=== PATIENT | male | born 1965 | race Caucasian/White ===

== ENCOUNTER 2018-12-02 01:40 | Emergency (ER) | payer BC ==
--- OUTSIDE RECORDS SUMMARY | 2018-12-02 01:43 | XMS REPORT | Clinical Summary ---
:1965 Author Organization [facility] Address [address] [place] [address] Care Team Providers Name Role Phone Dianne Menchaca MD Primary Care Provider Allergies No Known Allergies Medications Medication Sig Dispensed Refills Start Date End Date Status cyanocobalamin 1,000 Inject 1 mL into 0 08/30/2017 Active mcg/mL injection the shoulder, thigh, or buttocks every 30 (thirty) days. gabapentin (NEURONTIN) Take 600 mg by 0 Active 600 mg tablet mouth daily. Active Problems Not on file Encounters Date Type Specialty Care Team Description 12/09/2017 Telephone Family Medicine Dianne Menchaca MD 12/01/2017 Lab Lab Dianne Menchaca Vitamin B12 deficiency; MD Gina Peripheral polyneuropathy; Impaired fasting glucose 12/01/2017 Office Visit Family Dianne Dickson Peripheral polyneuropathy (Primary Dx); MD Gina Vitamin B12 deficiency; Impaired fasting glucose after 12/01/2017 Family History Medical History Relation Name Comments Hypertension Father Liver disease Father Diabetes Maternal Grandfather Hypertension Maternal Grandfather Lung cancer Maternal Grandmother Hypertension Mother Skin cancer Mother Relation Name Status Comments Father Maternal Grandfather Maternal Grandmother Mother Social History Tobacco Use Types Packs/Day Years Used Date Former Smoker Quit: 2001 Smokeless Tobacco: Never Used Sex Assigned at Date Recorded Not on file Job Start Date Occupation Industry Not on file Not on file Not on file Travel History Travel Start Travel End No recent travel history available. Last Filed Vital Signs Vital Sign Reading Time Taken Blood Pressure 138/77 12/01/2017 1:40 PM CDT Pulse 64 12/01/2017 1:40 PM CDT Temperature 37.1 C (98.8 F) 12/01/2017 1:40 PM CDT Respiratory Rate - - Oxygen Saturation 98% 12/01/2017 1:40 PM CDT Inhaled Oxygen Concentration - - Weight 92.5 kg (204 lb) 12/01/2017 1:40 PM CDT Height 189.2 cm (6' 2.5") 12/01/2017 1:40 PM CDT Body Mass Index 25.84 12/01/2017 1:40 PM CDT Plan of Treatment Date Type Specialty Care Team Description 12/14/2018 Office Visit Family Medicine Dianne Menchaca MD [address] [facility] [address] [place] [address] Health Maintenance Due Date Last Done Comments COLON CANCER SCREENING 2015 SHINGLES VACCINES (#1) 2015 INFLUENZA VACCINE 03/04/2019 05/27/2018 Procedures Procedure Name Priority Date/Time Associated Diagnosis Comments SEDIMENTATION RATE Routine 12/01/2017 2:48 Peripheral Results for this PM CDT polyneuropathy procedure are in the results section. HEMOGLOBIN A1C Routine 12/01/2017 2:48 Impaired fasting Results for this PM CDT glucose procedure are in the results section. COMPREHENSIVE Routine 12/01/2017 2:48 Peripheral Results for this METABOLIC PANEL PM CDT polyneuropathy procedure are in Impaired fasting the results glucose section. CBC WITH PLATELET AND Routine 12/01/2017 2:48 Peripheral Results for this DIFFERENTIAL PM CDT polyneuropathy procedure are in Vitamin B12 deficiency the results section. METHYLMALONIC ACID, Routine 12/01/2017 2:48 Vitamin B12 deficiency Results for this SERUM PM CDT procedure are in the results section. VITAMIN B12 LEVEL Routine 12/01/2017 2:48 Vitamin B12 deficiency Results for this PM CDT procedure are in the results section. after 12/01/2017 Results Methylmalonic acid, serum (12/01/2017 2:48 PM CDT) Methylmalonic acid 122 0 - 378 nmol/L [facility] Comment: This test was developed and its performance characteristics determined by [facility]. It has not been cleared or approved by the Food and Drug Administration. Specimen Blood Narrative Performed At Performed at:01 - [facility] [address] [place], [id number] Management Architect: Demetrius eVga MD, Phone:[phone] Performing Organization Address City/[facility] Phone Number [facility] Sedimentation rate (12/01/2017 2:48 PM CDT) Sedimentation rate 2 0 - 30 mm/hr [facility] Specimen Blood Narrative Performed At Performed at:01 - [facility] [place] [facility] [address] [place], [id number] Management Architect: Zackery Laurent MD, Phone:[phone] Performing Organization Address City/[facility] Phone Number [facility] CBC with platelet and differential (12/01/2017 2:48 PM CDT) WBC 5.1 3.4 - 10.8 x10E3/uL [facility] RBC 4.46 4.14 - 5.80 x10E6/uL [facility] HGB 14.5 13.0 - 17.7 g/dL [facility] HCT 41.9 37.5 - 51.0 % [facility] MCV 94 79 - 97 fL [facility] MCH 32.5 26.6 - 33.0 pg [facility] MCHC 34.6 31.5 - 35.7 g/dL [facility] RDW 12.8 12.3 - 15.4 % [facility] Platelet count 192 150 - 379 x10E3/uL [facility] Neutrophils 72 Not Estab. % [facility] Lymphocytes 20 Not Estab. % [facility] Monocytes 7 Not Estab. % [facility] Eosinophils 1 Not Estab. % [facility] Basophils 0 Not Estab. % [facility] Neutrophils, absolute 3.7 1.4 - 7.0 x10E3/uL [facility] Lymphocytes, absolute 1.1 0.7 - 3.1 x10E3/uL [facility] Monocytes, absolute 0.3 0.1 - 0.9 x10E3/uL [facility] Eosinophils, absolute 0.1 0.0 - 0.4 x10E3/uL [facility] Basophils, absolute 0.0 0.0 - 0.2 x10E3/uL [facility] Immature granulocytes 0 Not Estab. % [facility] Immature grans (abs) 0.0 0.0 - 0.1 x10E3/uL [facility] Specimen Blood Narrative Performed At [facility]formed [facility]: [facility] [address] [place], [id number] Management Architect: Zackery Laurent MD, Phone:[phone] Performing Organization Address [facility] Phone Number [facility] Hemoglobin A1c (12/01/2017 2:48 PM CDT) Hemoglobin A1C 5.0 4.8 - 5.6 % [facility] Comment: Pre-diabetes: 5.7 - 6.4 Diabetes: >6.4 Glycemic control for adults with diabetes: <7.0 Specimen Blood Narrative Performed At Performed at: [facility] [address] [place], [place] [id number] Management Architect: Zackery Laurent MD, Phone:[phone] Performing Organization Address [facility] Phone Number [facility] Vitamin B12 level (12/01/2017 2:48 PM CDT) Vitamin B12 741 232 - 1,245 pg/mL [facility] Specimen Blood Narrative Performed At Performed at: [facility] [place], [id number] Management Architect: Zackery Laurent MD, Phone:[phone] Performing Organization Address [facility] Phone Number [facility] Comprehensive metabolic panel (12/01/2017 2:48 PM CDT) Glucose 99 65 - 99 mg/dL [facility] BUN, whole blood 11 6 - 24 mg/dL [facility] Creatinine 0.75 (L) 0.76 - 1.27 mg/dL [facility] EGFR Non-Afr. Zambian 105 >59 mL/min/1.73 [facility] EGFR 122 >59 mL/min/1.73 [facility] BUN/creatinine ratio 15 9 - 20 [facility] Sodium 145 (H) 134 - 144 mmol/L [facility] Potassium 4.4 3.5 - 5.2 mmol/L [facility] Chloride 105 96 - 106 mmol/L [facility] CO2 24 18 - 29 mmol/L [facility] Calcium 9.3 8.7 - 10.2 mg/dL [facility] Protein 6.8 6.0 - 8.5 g/dL [facility] Albumin, S 4.8 3.5 - 5.5 g/dL [facility] Globulin, total 2.0 1.5 - 4.5 g/dL [facility] Albumin/globulin ratio 2.4 (H) 1.2 - 2.2 [facility] Total bilirubin 0.4 0.0 - 1.2 mg/dL [facility] Alkaline phosphatase 71 39 - 117 IU/L [facility] AST 20 0 - 40 IU/L [facility] ALT 21 0 - 44 IU/L [facility] Specimen Blood Narrative Performed At Performed at:01 - [facility] [place] [facility] [address] [place], [id number] Management Architect: Zackery Laurent MD, Phone:[phone] Performing Organization Address City/State/Zipcode Phone Number [facility] after 12/01/2017 Insurance Payer Benefit Plan / Group Subscriber ID Type Phone Address [facility] xxxxxxxxxxxx PPO Advance Directives Patient has advance care planning documents on file. For more information, please contact:Vance Martinez[address] [place] [address]
[2018-12-02 02:30] LABS: Absolute Lymphocytes (CBC) 1.2 K/uL (0.7-4.9); Absolute Monocytes 0.4 K/uL (0.1-1.3); Absolute Neutrophil 2.3 K/uL (1.8-8.0); Basophils % 0.9 % (0-1.3); Eosinophils % 8.4 % (0-4.4); Hematocrit 38.9 % (39.6-49.0); Lymphocytes % 28.1 % (15.3-44.8); MPV 8.8 fL (7.6-11.3); Monocytes % 9.6 % (3.3-12.3); RBC Red Blood Cell Count 4.06 M/uL (4.33-5.43)
[2018-12-02 02:55] LABS: ALT/SGPT 34 U/L (12-78); AST/SGOT 19 U/L (15-37); Alkaline Phosphatase 69 U/L (45-117); BUN Blood Urea Nitrogen 17 mg/dL (7-18); Bicarbonate 28 mmol/L (21-32); Bilirubin Direct < 0.1 mg/dL (0-0.2); Bilirubin Total 0.4 mg/dL (0.2-1.0); Glucose Level 109 mg/dL (74-106); Lipase 126 U/L (73-393); Potassium 3.9 mmol/L (3.5-5.1); Protein, Total 6.9 g/dL (6.4-8.2); Sodium Level 139 mmol/L (136-145)
--- NOTE | 2018-12-02 04:01 | ER ---
Nurse's Notes [facility] Name: Felix Roberson Age: 53 yrs Sex: Male : 1965 Arrival Date: 12/02/2018 Time: 01:42 Bed 7 Private MD: Diagnosis: Strain of adductor muscle, fascia and tendon of right thigh Presentation: 12/02 02:00 Presenting complaint: Patient states: he has had int R groin pain x 5 days. Denies aa1 blood in urine or dysuria. Denies N/V or fever. Reports minor discomfort with BM. Transition of care: patient was not received from another setting of care. Onset of symptoms was November 28, 2018. Risk Assessment: Do you want to hurt yourself or someone else? Patient reports no desire to harm self or others. Initial Sepsis Screen: Does the patient meet any 2 criteria? No. Patient's initial sepsis screen is negative. Does the patient have a suspected source of infection? No. Patient's initial sepsis screen is negative. Care prior to arrival: None. 02:00 Method Of Arrival: Ambulatory aa1 02:00 Acuity: DONG 3 aa1 Historical: - Allergies: 02:09 No Known Allergies; aa1 - Home Meds: 02:09 gabapentin oral oral [Active]; aa1 - PMHx: 02:09 neuropathy; Kidney stones; aa1 - PSHx: 02:09 Vasectomy; aa1 - Immunization history:: Flu vaccine is up to date. - Social history:: Smoking status: Patient/guardian denies using tobacco, but has a distant history of tobacco abuse. - Ebola Screening: : No symptoms or risks identified at this time. Screenin:00 Abuse screen: Denies threats or abuse. Denies injuries from another. Nutritional aa1 screening: No deficits noted. Tuberculosis screening: No symptoms or risk factors identified. Fall Risk None identified. Assessment: 02:00 General: Appears in no apparent distress. comfortable, slender, well groomed, Behavior aa1 is calm, cooperative, appropriate for age. Pain: Complains of pain in right femoral area and right inguinal area Pain currently is 3 out of 10 on a pain scale. Pain began 5 days ago Is intermittent. Neuro: Level of Consciousness is awake, alert, obeys commands, Oriented to person, place, time, situation, Moves all extremities. Gait is steady. Respiratory: Airway is patent Respiratory effort is even, unlabored, Respiratory pattern is regular, symmetrical. GI: Patient currently denies abdominal pain, constipation, cramping, diarrhea, nausea, vomiting. : Reports pain in right groin Denies burning with urination, inability to void, pain with urination urinary frequency, urgency. EENT: No signs and/or symptoms were reported regarding the EENT system. Derm: Skin is intact, is healthy with good turgor, Skin is pink, warm \T\ dry. Musculoskeletal: Circulation, motion, and sensation intact. Capillary refill < 3 seconds. 02:47 Reassessment: Patient appears in no apparent distress at this time. Patient and/or aa1 family updated on plan of care and expected duration. Pain level reassessed. Patient is alert, oriented x 3, equal unlabored respirations, skin warm/dry/pink. Awaiting CT results. 04:24 Reassessment: Patient appears in no apparent distress at this time. Patient is alert, aa1 oriented x 3, equal unlabored respirations, skin warm/dry/pink. Discussed d/c \T\ f/u instructions with pt; denies questions or concerns at this time. Ambulates to lobby with steady gait. Vital Signs: 02:09 BP 153 / 92; Pulse 61; Resp 16; Temp 98.4; Pulse Ox 98% on R/A; Weight 83.91 kg; Height aa1 6 ft. 2 in. (187.96 cm); Pain 3/10; 02:47 BP 141 / 95; Pulse 54; Resp 16; Pulse Ox 95% on R/A; aa1 03:30 BP 116 / 88; Pulse 51; Resp 16; Pulse Ox 97% on R/A; Pain 4/10; aa1 04:24 BP 120 / 83; Pulse 51; Resp 16; Temp 98.2; Pulse Ox 97% on R/A; Pain 2/10; aa1 02:09 Body Mass Index 23.75 (83.91 kg, 187.96 cm) aa1 ED Course: 01:42 Patient arrived in ED. ds1 01:51 Luis A Alfaro PA is PHCP. [facility] 01:51 Jose Hardy MD is Attending Physician. [facility] 01:58 Autenrieth, Mohini, RN is Primary Nurse. aa1 02:00 Patient has correct armband on for positive identification. Bed in low position. Call aa1 light in reach. Pulse ox on. NIBP on. 02:06 Triage completed. aa1 02:09 Arm band placed on right wrist. aa1 02:20 Initial lab(s) drawn, by me, sent to lab. Inserted saline lock: 20 gauge in right ak1 antecubital area, using aseptic technique. Blood collected. 03:35 CT Abd/Pelvis - W/Contrast In Process Unspecified. EDMS 04:24 No provider procedures requiring assistance completed. IV discontinued, intact, aa1 bleeding controlled, No redness/swelling at site. Pressure dressing applied. Administered Medications: 04:10 Drug: TORadol 30 mg Route: IVP; Site: right antecubital; aa1 04:24 Follow up: Response: No adverse reaction; Medication administered at discharge. aa1 Outcome: 04:00 Discharge ordered by . tw4 04:24 Discharged to home ambulatory. aa1 04:24 Condition: good 04:24 Discharge instructions given to patient, Instructed on discharge instructions, follow up and referral plans. medication usage, Demonstrated understanding of instructions, follow-up care, medications, Prescriptions given X 1. 04:26 Patient left the ED. aa1 Signatures: Dispatcher [employer] EDOK Mohini Mcmullen, KRISTEN RN aa1 Luis A Alfaro PA PA jmm Sanford, Demi ds1 Constance Martinez RN RN ak1 Jose Hardy MD MD tw4 Corrections: (The following items were deleted from the chart) 04:28 03:30 No provider procedures requiring assistance completed. aa1 aa1 04:28 03:30 IV discontinued, intact, bleeding controlled, No redness/swelling at site. aa1 Pressure dressing applied, aa1
--- NOTE | 2018-12-02 04:01 | EDPHYS ---
Physician Documentation [facility] Name: Felix Roberson Age: 53 yrs Sex: Male : 1965 Arrival Date: 12/02/2018 Time: 01:42 Bed 7 Private MD: ED Physician Jose Hardy HPI: 12/02 01:56 This 53 yrs old Male presents to ER via Ambulatory with complaints of Groin jmm Pain. 01:56 The patient presents with swelling. Onset: The symptoms/episode began/occurred jmm gradually, 4 day(s) ago. Associated signs and symptoms: Pertinent negatives: fever. This is a 53 year old male with no chronic medical conditions that presents to the ED with complaints of right groin pain worsening after biking 150 miles this weekend. Patient states pain was worsened while bending at work today. Denies scrotal pain. Denies vomiting, denies fever. . Historical: - Allergies: 02:09 No Known Allergies; aa1 - Home Meds: 02:09 gabapentin oral oral [Active]; aa1 - PMHx: 02:09 neuropathy; Kidney stones; aa1 - PSHx: 02:09 Vasectomy; aa1 - Immunization history:: Flu vaccine is up to date. - Social history:: Smoking status: Patient/guardian denies using tobacco, but has a distant history of tobacco abuse. - Ebola Screening: : No symptoms or risks identified at this time. ROS: 01:56 Constitutional: Negative for fever, chills, and weight loss, Cardiovascular: Negative jmm for chest pain, palpitations, and edema, Respiratory: Negative for shortness of breath, cough, wheezing, and pleuritic chest pain. 01:56 Back: Negative for injury and pain, Skin: Negative for injury, rash, and discoloration, Neuro: Negative for headache, weakness, numbness, tingling, and seizure. 01:56 Abdomen/GI: Positive for abdominal pain. 01:56 All other systems are negative. Exam: 01:56 Constitutional: This is a well developed, well nourished patient who is awake, alert, jmm and in no acute distress. Head/Face: atraumatic. Eyes: EOMI, no conjunctival erythema appreciated ENT: Moist Mucus Membranes Neck: Trachea midline, Supple Chest/axilla: Normal chest wall appearance and motion. Cardiovascular: Regular rate and rhythm. No edema appreciated Respiratory: Normal respirations, no respiratory distress appreciated Abdomen/GI: Non distended, soft 01:56 : swelling noted to the right groin, no scrotal mass appreciated on examination of the right inguinal canal. 01:56 Musculoskeletal/extremity: ROM: intact in all extremities. 01:56 Skin: Appearance: Color: normal in color. 01:56 Neuro: Orientation: is normal, Mentation: is normal, Memory: is normal. 01:56 Psych: Behavior/mood is pleasant, cooperative. Vital Signs: 02:09 BP 153 / 92; Pulse 61; Resp 16; Temp 98.4; Pulse Ox 98% on R/A; Weight 83.91 kg; Height aa1 6 ft. 2 in. (187.96 cm); Pain 3/10; 02:47 BP 141 / 95; Pulse 54; Resp 16; Pulse Ox 95% on R/A; aa1 03:30 BP 116 / 88; Pulse 51; Resp 16; Pulse Ox 97% on R/A; Pain 4/10; aa1 04:24 BP 120 / 83; Pulse 51; Resp 16; Temp 98.2; Pulse Ox 97% on R/A; Pain 2/10; aa1 02:09 Body Mass Index 23.75 (83.91 kg, 187.96 cm) aa1 MDM: 01:56 Patient medically screened. [facility] 02:46 Data reviewed: vital signs, nurses notes. Transition of care: After a detail discussion [facility] of the patient's case, care is transferred to Jose Hardy MD. 12/02 02:06 Order name: Basic Metabolic Panel; Complete Time: 03:58 [facility] 12/02 03:59 Interpretation: Normal except: GLUC 109. 12/02 02:06 Order name: CBC with Diff; Complete Time: 03:59 [facility] 12/02 03:59 Interpretation: Normal except: HCT 38.9; RBC 4.06. 12/02 02:06 Order name: Creatinine for Radiology; Complete Time: 03:59 [facility] 12/02 03:59 Interpretation: Within normal limits. [facility] 12/02 02:06 Order name: Hepatic Function; Complete Time: 03:59 [facility] 12/02 03:59 Interpretation: Within normal limits. 12/02 02:06 Order name: Lipase [facility] 12/02 02:06 Order name: CT Abd/Pelvis - W/Contrast [facility] 12/02 02:06 Order name: IV Saline Lock; Complete Time: 02:20 [facility] 12/02 02:06 Order name: Labs collected and sent; Complete Time: 02:20 [facility] Administered Medications: 04:10 Drug: TORadol 30 mg Route: IVP; Site: right antecubital; aa1 04:24 Follow up: Response: No adverse reaction; Medication administered at discharge. aa1 Disposition: 12/02/18 04:00 Discharged to Home. Impression: Strain of adductor muscle, fascia and tendon of right thigh. - Condition is Stable. - Discharge Instructions: Adductor Muscle Strain, Muscle Strain. - Prescriptions for Ibuprofen 800 mg Oral Tablet - take 1 tablet by ORAL route every 8 hours As needed take with food; 30 tablet. - Medication Reconciliation Form, Thank You Letter, Antibiotic Education, Prescription Opioid Use form. - Follow up: Private Physician; When: Upon discharge from the Emergency Department; Reason: If symptoms return, Recheck today's complaints, Continuance of care. - Problem is new. - Symptoms have improved. Signatures: Dispatcher [employer] EDMohini Hammond RN RN aa1 Luis A Alfaro PA PA [facility] Jose Hardy MD MD tw4 Corrections: (The following items were deleted from the chart) 04:26 04:00 12/02/2018 04:00 Discharged to Home. Impression: Strain of adductor muscle, aa1 fascia and tendon of right thigh. Condition is Stable. Forms are Medication Reconciliation Form, Thank You Letter, Antibiotic Education, Prescription Opioid Use. Follow up: Private Physician; When: Upon discharge from the Emergency Department; Reason: If symptoms return, Recheck today's complaints, Continuance of care. Problem is new. Symptoms have improved. tw4
[2018-12-02] MEDS ORDERED: KETOROLAC 30 MG/ML INJ ONE (04:22)
--- NOTE | 2018-12-02 11:58 | RAD REPORT ---
EXAM DESCRIPTION: CT - Abdomen Pelvis W Contrast - 12/02/2018 4:22 am CLINICAL HISTORY: The patient is 53 years old and is Male; right lower abdominal pain TECHNIQUE: Axial computed tomography images of the abdomen and pelvis with intravenous contrast. S agittal and coronal reformatted images were created and reviewed. This CT exam was performed using one or more of the following dose reduction techniques: automated exposure control, adjustment of t he mA and/or kV according to patient size, and/or use of iterative reconstruction technique. COMPARISON: None. FINDINGS: LUNG BASES: Unremarkable. No mass. No consolidation. ABDOMEN: LIVER: Unremarkable. No mass. GALLBLADDER AND BILE DUCTS: Unremarkable. No calcified stones. No ductal dilation. PANCREAS: Unremarkable. No mass. No ductal dilation. SPLEEN: Unremarkable. No splenomegaly. ADRENALS: Unremarkable. No mass. KIDNEYS AND URETERS: Subcentimeter bilateral renal cysts. No hydronephrosis. STOMACH AND BOWEL: Unremarkable. No obstruction. No mucosal thickening. PELVIS: APPENDIX: The appendix is seen and is within normal limits. BLADDER: Unremarkable. No mass. REPRODUCTIVE: Unremarkable as visualized. ABDOMEN and PELVIS: INTRAPERITONEAL SPACE: Unremarkable. No free air. No significant fluid collection. BONES/JOINTS: No acute fracture. No dislocation. SOFT TISSUES: Unremarkable. VASCULATURE: Unremarkable. No abdominal aortic aneurysm. LYMPH NODES: Unremarkable. No enlarged lymph nodes. IMPRESSION: 1. No acute abdominal or pelvic abnormality. Electronically signed by: Rudi Hargrove DO 12/02/2018 3:42 AM CDT Due to temporary technical issues with the PACS/Fluency reporting system, reports are being signed by the in house radiologist as a courtesy to ensure prompt reporting. The interpreting radiologist is f ully responsible for the content of the report.
== END 2018-12-02 04:26 | disposition home or self-care (01) ==
LOC: ER 01:40
DX: S76.211A Strain of adductor muscle, fascia and tendon of right thigh, initial encounter (principal); X58.XXXA Exposure to other specified factors, initial encounter; Y93.55 Activity, bike riding; Y92.9 Unspecified place or not applicable
CPT/HCPCS: 36415; 74177; 80048; 80076; 83690; 85025; 96374; 99284; Q9967